=== PATIENT | male | born 1995 | race Caucasian/White ===

== ENCOUNTER 2018-08-27 13:21 | Emergency (ER) | payer BC ==
[2018-08-27 13:48] VITALS: RESP 18
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
--- NOTE | 2018-08-27 15:13 | XR ---
Right elbow HISTORY: Trauma and pain 3 views of the right elbow There is a displaced olecranon fracture present. Associated soft tissue swelling is noted. No disloca tion. Small comminuted fragment may be present posteriorly. IMPRESSION: Fracture as described
[2018-08-27 16:09] VITALS: BP 123/67; PULSE 61; TEMP 98.4
== END 2018-08-27 16:07 | disposition home or self-care (01) ==
LOC: EC 13:21
DX: S52.021A Displaced fracture of olecranon process without intraarticular extension of right ulna, initial encounter for closed fracture (principal); V23.4XXA Motorcycle driver injured in collision with car, pick-up truck or van in traffic accident, initial encounter; Y93.55 Activity, bike riding; Y92.410 Unspecified street and highway as the place of occurrence of the external cause
CPT/HCPCS: 29105; 99283

== ENCOUNTER → 2018-09-07 | Outpatient (CLI) | payer OTHER, BC ==
--- NOTE | 2018-09-07 11:56 | CT ---
EXAMINATION TYPE: CT elbow RT wo con DATE OF EXAM: 09/07/2018 COMPARISON: Plain film 08/27/2018 HISTORY: pain in right elbow CT DLP: 231 mGycm Automated exposure control for dose reduction was used. Helical acquisition through the right elbow. Coronal and sagittal reconstructions, three-dimensional reconstructions performed on an alternate wor kstation FINDINGS: Comminuted olecranon fracture is present with some minimal displacement, screws have been placed in t he interval causing artifact. Distal aspect of one of the screws may be outside of bone at the dorsal aspect of the proximal ulna. Proximally there is fragmentation of the fracture. The longer screw cou rses through dominated portion of the fracture fragment. There is no dislocation. There is soft tissu e swelling noted. IMPRESSION: COMMINUTED OLECRANON FRACTURE AND POSTPROCEDURAL CHANGES DESCRIBED.
== END | disposition home or self-care (01) ==
LOC: RADCTMAIN 09:55
PROVIDERS: ATTEND Orthopaedic Surgery
DX: Z48.89 Encounter for other specified surgical aftercare (principal); S52.021D Displaced fracture of olecranon process without intraarticular extension of right ulna, subsequent encounter for closed fracture with routine healing; Z98.890 Other specified postprocedural states